=== PATIENT | female | born 1955 | race Caucasian/White ===

== ENCOUNTER 2019-07-04 08:12 | Outpatient (CLI) | payer BC ==
--- NOTE | 2019-07-04 09:20 | MMO ---
Bilateral MAMMO Bilat Diag [facility]. CLINICAL HISTORY: Patient is 64 years old and is seen for diagnostic exam,lump or thickening and pain in the left breast. The patient has no family history of breast cancer. The patient has a history of malignant (generic) in the left breast at age 41. The patient has a history of left Lumpectomy at age 41 - malignant. VIEWS: The views performed were: bilateral craniocaudal with tomosynthesis; bilateral mediolateral oblique with tomosynthesis; bilateral mediolateral with tomosynthesis; left mediolateral oblique; and left exaggerated craniocaudal. FILMS COMPARED: The present examination has been compared to prior imaging studies performed at [facility] on 07/04/2019, and at [facility] on 12/27/2011, 01/14/2013 and 02/27/2014. This study has been interpreted with the assistance of computer-aided detection. MAMMOGRAM FINDINGS: The breasts are heterogeneously dense, which could obscure a lesion on mammography. Finding 1: There are stable benign appearing calcifications seen in both breasts. Finding 2: There is a stable post-surgical scar seen in the upper-outer region of the left breast. Ultrasound shows scar No mass. There are no suspicious masses, suspicious calcifications, or new areas of architectural distortion. IMPRESSION: THERE IS NO MAMMOGRAPHIC EVIDENCE OF MALIGNANCY. A ROUTINE FOLLOW-UP MAMMOGRAM IN 1 YEAR IS RECOMMENDED. THE RESULTS OF THIS EXAM WERE SENT TO THE PATIENT. ACR BI-RADS Category 2 - Benign finding MAMMOGRAPHY NOTE: 1. A negative mammogram report should not delay a biopsy if a dominant of clinically suspicious mass is present. 2. Approximately 10% to 15% of breast cancers are not detected by mammography. 3. Adenosis and dense breasts may obscure an underlying neoplasm. Reported by: LUNA LOPEZ MD Electonically Signed: [id number]
--- NOTE | 2019-07-04 10:07 | ULT ---
LEFT BREAST ULTRASOUND: Date: 07/04/2019 HISTORY: Status post breast cancer many years ago. Pain in the region of the left breast scar. FINDINGS: The region of the left breast scar at 3 o'clock is evaluated with ultrasound. There is prominent shad owing from the prominent scar, but no evidence for other associated mass. IMPRESSION: Left breast postsurgical scar at 3 o'clock with expected shadowing. No evidence for other mass or abn ormal ultrasound finding in the 3 o'clock region of the left breast. POS: [facility]ERT
== END 2019-07-04 08:13 | disposition home or self-care (01) ==
LOC: BICMAMMO 08:12
PROVIDERS: ATTEND Internal Medicine
DX: N63.20 Unspecified lump in the left breast, unspecified quadrant (principal); Z98.890 Other specified postprocedural states
CPT/HCPCS: 77066; G0279

== ENCOUNTER 2021-05-07 11:11 | Day surgery (SDC) | payer BC, MEDICARE ==
[2021-05-04 12:50] VITALS: BMI 31.1
[2021-05-07] MEDS ORDERED: Acetaminophen 500 MG TAB ONE (12:32)
[2021-05-07] MEDS ORDERED: Ketorolac Tromethamine 30 MG/ML VIAL ONE (12:32)
[2021-05-07] MEDS ORDERED: Bupivacaine 0.25% HCL 30 ML VIAL ONE (13:28)
[2021-05-07] MEDS ORDERED: EPINEPHrine 1 MG/ML AMP ONE (13:28)
[2021-05-07] MEDS ORDERED: Fentanyl 250 MCG/5 ML VIAL ONE (14:10)
[2021-05-07] MEDS ORDERED: ceFAZolin 2 GM/DEX 5% 100 ML BAG ONE ×2 (14:14→14:15)
[2021-05-07] MEDS ORDERED: Lidocaine 1% PF 5 ML VIAL ONE (14:21)
[2021-05-07] MEDS ORDERED: Ondansetron PF 4 MG/2 ML Vial ONE (14:21)
[2021-05-07] MEDS ORDERED: Dexamethasone 20 MG/5 ML VIAL ONE (14:21)
[2021-05-07] MEDS ORDERED: PROPOFOL 200 MG/20 ML VIAL ONE (14:21)
[2021-05-07] MEDS ORDERED: ePHEDrine 50 MG/ML VIAL ONE (14:21)
[2021-05-07] MEDS ORDERED: Bacitracin Zinc Ointment 30 gm TUBE ONE (15:05)
== END 2021-05-07 17:05 | disposition home or self-care (01) ==
LOC: SDC 11:11
PROVIDERS: ATTEND Specialist
PROC: 0JBF0ZZ Excision of Left Upper Arm Subcutaneous Tissue and Fascia, Open Approach (ICD-10-PCS; principal; 2021-05-07)
DX: D17.22 Benign lipomatous neoplasm of skin and subcutaneous tissue of left arm (principal); M19.90 Unspecified osteoarthritis, unspecified site; Z85.3 Personal history of malignant neoplasm of breast; Z79.899 Other long term (current) drug therapy
CPT/HCPCS: 88304; J0171; J1100; J1885; J2405; J2704; J3010; J3490; S0020